=== PATIENT | male | born 1955 | race Caucasian/White ===

== ENCOUNTER 2018-10-02 13:00 | Inpatient (IN) | payer OTHER ==
[~2018-10-02] VITALS: Ht 185.4 cm; Wt 113.0 kg
[~2018-10-02 13:00] MED LIST: ASCO500C7 PO; CHOL4PAC PO; FLUT16SP17 NASAL; METF500T3 PO; MULTI PO; OLME40TA PO; UBID300C PO
[2018-10-08] VITALS (16 sets, daily range): BP systolic 97–139; BP diastolic 43–85; PULSE 72–92; RESP 11–19; Ht 185.4 cm; Wt 113.0 kg
[2018-10-08] MEDS ORDERED: LACTATED RINGER'S 1,000 ML IV ONE (11:00)
[2018-10-08] MEDS ORDERED: CEFAZOLIN 2 GM/50 ML (PMX) 50 ML IVPB SCH (11:00)
[2018-10-08] MEDS ORDERED: SOD CHLORIDE 0.9% 1,000 ML IV SCH (11:30)
[2018-10-08] MEDS ORDERED: GELATIN SIZE 100 SPONGE ONE (11:50)
[2018-10-08] MEDS ORDERED: POLYMYXIN/BACITRACIN 1L IRRIG ONE (11:51)
[2018-10-08] MEDS ORDERED: THROMBIN 5000 UNIT (RECOTHROM) VIAL ONE (11:51)
[2018-10-08] MEDS ORDERED: BUPIVACAINE 0.5%/EPI (SDV) 30 ML INJ ONE (11:51)
[2018-10-08] MEDS ORDERED: HEPARIN 1000 UNITS/ML 10 ML INJ ONE (11:51)
[2018-10-08] MEDS ORDERED: CA CHLORIDE 10% 10 ML SYRINGE ONE (11:52)
--- NOTE | 2018-10-08 12:11 | PREAC ---
Date/Time of Note Date/Time of Note DATE: 10/08/18 TIME: 12:09 Anesthesia Eval and Record Evaluation Time Pre-Procedure Interview DATE: 10/08/18 TIME: 12:09 Age 63 Sex male NPO: 8 hrs Preoperative diagnosis back pain, spinal stenosis and lipomatosis Planned procedure decompression Past Medical History Past Medical History: Includes Cardio: HTN, Dyslipidemia Endo: Diabetes GI: Obesity Surgery & Anesthesia Issues Hx of delayed emergence, No known issue Meds Anticoagulation: No Beta Christie within 24 hr: No Reason Beta Christie not given: Pt. not on B-Christie Reported Medications Ubidecarenone* (Co Q-10*) 300 Mg Capsule, 300 MG PO DAILY, CAP 10/08/18 Multivitamins* (Theragran*) 1 Tab Tab, 1 TAB PO DAILY, TAB 10/08/18 Ascorbic Acid* (Vitamin C*) 500 Mg Capsule.sa, 500 MG PO DAILY, CAP 10/08/18 Fluticasone Propionate* (Fluticasone Propionate* Nasal) 50 Mcg/[place] - 16 Gm [place].susp, 1 SPRAY NASAL DAILY, #1 BOTTLE TO EACH NOSTRIL 10/08/18 Metformin* (Glucophage* XR) 500 Mg Tab.sr.24h, 500 MG PO BID, #30 TAB 10/08/18 Olmesartan Medoxomil (Olmesartan Medoxomil) 40 Mg Tablet, 40 MG PO DAILY 10/08/18 Current Medications Cefazolin Sodium/ Dextrose 50 ml @ 100 mls/hr PRE-OP IVPB ; Start 10/08/18 at 11:00; Stop 10/08/18 at 15:00 Sodium Chloride 1,000 ml @ 0 mls/hr Q0M IV ; Start 10/08/18 at 11:30 Meds reviewed: Yes Allergies Coded Allergies: acetaminophen (Unverified Allergy, Unknown, 10/08/18) hydrocodone (Unverified Allergy, Unknown, 10/08/18) meperidine (Unverified Allergy, Unknown, 10/08/18) Allergies Reviewed: Yes Labs/Studies Labs Reviewed: Reviewed by anesthesiologist test: N/A Pre-procedure Exam Last vitals Vital Signs Date Temp Pulse Resp B/P (MAP) Pulse Ox O2 O2 Flow FiO2 Time Delivery Rate 10/08/18 97.8 78 16 116/70 98 Room Air 11:49 (85) Airway: Adequate mouth opening, Adequate thyromental dist Mallampati: Mallampati IV Teeth: Normal Lung: Normal Heart: Normal ASA Physical Status ASA physical status: 2 Emergency: None Pre-operative Attestations Prior to commencing anesthesia and surgery, the patient was re-evaluated, there was verification of: *The patient's identity *The results of appropriate recent lab work and preoperative vital signs *The above evaluation not changing prior to induction *Anesthetic plan, risk benefits, alternative and complications discussed with patient/family; questions answered; patient/family understands, accepts and wishes to proceed. RIKKI LEOS DO Oct 08, 2018 12:11
[2018-10-08] MEDS: 1/2 NS + KCL 20 MEQ 1,000 ML IV SCH ×3 (12:17→22:17)
--- NOTE | 2018-10-08 12:17 | HPN ---
Date/Time of Note Date/Time of Note DATE: 10/08/18 TIME: 12:17 Interval H&P Admission Note Pt. seen H&P reviewed: No system changes VIOLET ALAMO PA-C Oct 08, 2018 12:17
[2018-10-08] MEDS ORDERED: DESFLURANE 15 MIN ONE (12:24)
[2018-10-08] MEDS ORDERED: PROPOFOL 20 ML ONE (12:24)
[2018-10-08] MEDS ORDERED: SUCCINYLCHOLINE CHLORIDE 100 MG/5 ML SYG IV ONE (12:24)
[2018-10-08] MEDS ORDERED: LIDOCAINE 2% (SDV) 5 ML INJ ONE (12:24)
[2018-10-08] MEDS ORDERED: ROCURONIUM 50 MG INJ ONE (12:24)
[2018-10-08] MEDS ORDERED: MIDAZOLAM 1 MG/ML 2 ML INJ ONE (12:25)
[2018-10-08] MEDS ORDERED: ONDANSETRON 4 MG INJ IV PRN ×2 (12:30→14:30)
[2018-10-08] MEDS ORDERED: HYDROmorphONE 0.5 MG/0.5 ML SYG IV PRN (12:30)
[2018-10-08] MEDS ORDERED: BISACODYL 10 MG SUPP PR PRN (12:30)
[2018-10-08] MEDS ORDERED: traMADol 50 MG TAB PO PRN (12:30)
[2018-10-08] MEDS ORDERED: AL HYDROX/MG HYDROX/SIMETH 30 ML CUP PO PRN (12:30)
[2018-10-08] MEDS ORDERED: DIPHENHYDRAMINE 50 MG INJ IV PRN (12:30)
[2018-10-08] MEDS ORDERED: DIPHENHYDRAMINE 25 MG CAP PO PRN (12:30)
[2018-10-08] MEDS ORDERED: NALOXONE (0.4 MG/ML) INJ IV PRN (12:30)
[2018-10-08] MEDS ORDERED: ACETAMINOPHEN 325 MG TAB PO PRN (12:30)
[2018-10-08] MEDS ORDERED: CEPASTAT LOZENGE MT PRN (12:30)
[2018-10-08] MEDS ORDERED: CARISOPRODOL 350 MG TAB PO PRN (12:30)
[2018-10-08] MEDS ORDERED: ONDANSETRON 4 MG INJ ONE (12:41)
[2018-10-08] MEDS ORDERED: CEFAZOLIN 1 GM INJ ONE (12:41)
[2018-10-08] MEDS ORDERED: DEXAMETHASONE 4 MG/ML 5 ML INJ ONE (12:41)
[2018-10-08] MEDS ORDERED: GLUCOSE GEL 15 GRAM TUBE PO PRN ×2 (14:30)
[2018-10-08] MEDS ORDERED: GLUCOSE GEL 15 GRAM TUBE BUCCAL PRN (14:30)
[2018-10-08] MEDS ORDERED: hydrALAzine 20 MG INJ IV PRN (14:30)
[2018-10-08] MEDS ORDERED: GLUCAGON 1 MG INJ IM PRN (14:30)
[2018-10-08] MEDS ORDERED: LABETALOL HCL 20MG INJ IV PRN (14:30)
[2018-10-08] MEDS ORDERED: HYDROmorphONE 1 MG/5 ML IV SYRINGE IV PRN ×3 (14:30)
[2018-10-08] MEDS ORDERED: DEXTROSE 50% 50 ML SYRINGE IV PRN ×2 (14:30)
[2018-10-08] MEDS ORDERED: SUGAMMADEX SODIUM 200 MG/2 ML VIAL IV ONE (14:34)
--- NOTE | 2018-10-08 14:46 | SIPON ---
Date/Time of Note Date/Time of Note DATE: 10/08/18 TIME: 14:44 Operative Report Preoperative Diagnosis Lumbosacral stenosis Postoperative Diagnosis Lumbosacral stenosis Operation/Procedure Performed Lumbosacral decompression Surgeon see signature line veterinarian assistant Eli Saini Anesthesia: general Estimated blood loss: 50 - 100 ml's Transfusion Required none Specimen None Grafts/Implants none Complications none MEAGAN DAVIS MD Oct 08, 2018 14:46
--- NOTE | 2018-10-08 14:56 | PAC ---
Date/Time of Note Date/Time of Note DATE: 10/08/18 TIME: 14:55 Post-Anesthesia Notes Post-Anesthesia Note Last documented vital signs Vital Signs Date Temp Pulse Resp B/P (MAP) Pulse Ox O2 O2 Flow FiO2 Time Delivery Rate 10/08/18 98 90 16 120/60 98 Room Air Activity: WNL Respiratory function: WNL Cardiovascular function: WNL Mental status: Baseline Pain reasonably controlled: Yes Hydration appropriate: Yes Nausea/Vomiting absent: Yes RIKKI LEOS DO Oct 08, 2018 14:56
[2018-10-08] MEDS ORDERED: FENTAnyl 50 MCG/ML VIAL IV PRN ×3 (15:00)
[2018-10-08] MEDS: CEFAZOLIN 1 GM/50 ML (PMX) 50 ML IVPB SCH ×2 (15:21→23:08)
--- NOTE | 2018-10-08 17:18 | OPR ---
DATE OF OPERATION: 10/08/2018 PREOPERATIVE DIAGNOSES: 1. L5 to S1 stenosis. 2. Epidural lipomatosis. 3. Extradural intraspinal cyst. POSTOPERATIVE DIAGNOSES: 1. L5 to S1 stenosis. 2. Epidural lipomatosis. 3. Extradural intraspinal cyst. PROCEDURE: Central decompressive laminectomy at L5 to S1, decompression L5 and S1 nerve root with removal of epidural lipomatosis. ESTIMATED BLOOD LOSS: 60 mL. FINDINGS: Patient had stenosis with epidural lipomatosis. Neuromonitoring at the start of the case revealed left L5 amplitude down 40% and left L4 amplitude down to 30%. End of the case the nerve signals returned to normal. DRAINS: None. SPECIMENS: None. COMPLICATIONS OF PROCEDURES: None. ANESTHESIOLOGIST: Hiro Taylor DO TYPE OF ANESTHESIA: General. INDICATIONS FOR PROCEDURE: This is a 63-year-old gentleman with lumbar radiculopathy in setting of stenosis at the L5 to S1 level. He failed nonoperative measures; therefore, I recommended that he undergo the above procedure. Preoperatively, we discussed risks, benefits and alternatives. He understood and wished to proceed. DESCRIPTION OF PROCEDURE IN DETAIL: The patient was identified in the preoperative holding area, given vancomycin antibiotic, taken to the operating room, where he was successfully placed under general anesthesia. Neuromonitoring leads were placed. Sequential compressive devices were applied. Intraoperative neuromonitoring was performed by Dr. Llanos from 1212 until 1435 to include SSEP, MEP and EMG performed by [employer]. The patient was placed in the operative table in prone position over a Fredy frame. All bony prominences were padded. The back was then prepped and draped in the usual sterile fashion. Spinal needles were placed and lateral localizing films were obtained to confirm the correct levels. Once this was confirmed, I injected Marcaine and epinephrine. Incision was then made over the L5 to S1 level. Incision was taken down to dorsal fascia which was incised with Bovie cautery. I then subperiosteally dissected the L5 and S1 lamina. Kerrison was placed under the L5 lamina and repeat lateral film was obtained to confirm the correct levels. Next, I performed a central decompressive laminectomy at the L5 to S1 level. I left the upper lamina and spinous process intact. I then brought in the microscope and then I identified ligamentum flavum which I dissected down in the midline and then dissected out to the right. I decompressed the right side of the canal as well as the traversing nerve root. I then was able to decompress the L5 nerve root as well in addition to the S1 nerve root. I then turned my attention to the left side. Here, the ligamentum flavum adhered to the dura due to a synovial cyst. I was able to peel this off meticulously with a Tarkio elevator and then I was able to remove the ligamentum flavum at the site. Epidural lipomatosis was identified bilaterally. Once I was able to remove this, I completed the decompression and decompressed the L5 and S1 nerve roots on the left. At this point, all nerve signals returned to normal. Hemostasis was achieved. The wound was irrigated. PPP and thrombin were injected over the dura. Valsalva maneuver was performed and there was no leak of CSF. A deep subfascial drain was placed and the retractors were removed. I closed the fascia with #1 Vicryl stitch. I closed the subcuticular layer with 2-0 Monocryl stitch. Microscope was taken off the field. A 4-0 Monocryl closure was then performed. Dermabond and sterile dressing was then applied. The patient was awakened from anesthesia and taken to the recovery room in stable condition. Lap, sponge and instruments were correct x2. There were no apparent complications during the procedure. The patient will be admitted to the [facility] for routine postoperative care to include pain control, neurovascular checks, antibiotics and physical therapy. Dictated By: MEAGAN KHAN/JAYDA Conf#: [id number] DID#: [id number] CC: ANIBAL OSULLIVAN MD;*EndCC* MTDD
[2018-10-08] MEDS: metFORMIN (XR) 500 MG TAB PO SCH (17:55)
[2018-10-08] MEDS: INSULIN ASPART [NOVOLOG] 3 ML PEN SC SCH ×3 (17:55→21:00)
--- NOTE | 2018-10-08 18:14 | CONS ---
Assessment/Plan Assessment/Plan Problems: (1) Type 2 diabetes mellitus without complications Status: Chronic Comment: Cont. metformin and monitor glucose. Check A1c. Intensify therapy if necessary (2) Essential (primary) hypertension Status: Chronic Comment: Cont. losartan and monitor BP. Intensify therapy if necessary. (3) Hyperlipidemia Status: Chronic Comment: Statin intolerant and failed ezetimibe as well. Consider bile acid sequestrant medication but would not give while also on narcotics due to increased risk of constipation. Will give Rx before d/c. (4) Allergic rhinitis Status: Chronic Comment: Cont. nasal fluticasone (5) Spinal stenosis of lumbar region with neurogenic claudication Status: Resolved Comment: Per primary team (6) Status post lumbar laminectomy Status: Acute Comment: Doing well POD#0. Pain control and PT per primary team. Will follow with you and manage any medical issues should they arise. Consultation Date/Type/Reason Admit Date/Time Oct 08, 2018 at 10:10 Date of Consultation: Oct 08, 2018 Type of Consult Medicine Reason for Consultation Medical Management Requesting Provider: MEAGAN DAVIS MD Date/Time of Note DATE: 10/08/18 TIME: 18:07 Hx of Present Illness 63 y/o C M w/ h/o T2DM, HTN, hyperlipidemia w/ statin intolerance in [facility] until 11 y. ago when he began to experience situational numbness in the balls of his feet. Slowly progressive. Recently numbness turned to pain and became painful to do anything. Unable to ascend stairs due to pain. Even more recently developed lumbar pain. MRI showed lumbar spinal stenosis and epidural lipoma. Pt. admitted today for scheduled lumbar lami and epidural lipomectomy. Constitutional: no complaints, improved Eyes: no complaints ENT: no complaints Respiratory: no complaints Cardiovascular: no complaints Gastrointestinal: no complaints Genitourinary: no complaints Musculoskeletal: no complaints Neurologic: no complaints Past Medical History Medical History: diabetes, high cholesterol, hypertension Home Meds Reported Medications Ubidecarenone* (Co Q-10*) 300 Mg Capsule, 300 MG PO DAILY, CAP 10/08/18 Multivitamins* (Theragran*) 1 Tab Tab, 1 TAB PO DAILY, TAB 10/08/18 Ascorbic Acid* (Vitamin C*) 500 Mg Capsule.sa, 500 MG PO DAILY, CAP 10/08/18 Fluticasone Propionate* (Fluticasone Propionate* Nasal) 50 Mcg/[place] - 16 Gm [place].susp, 1 SPRAY NASAL DAILY, #1 BOTTLE TO EACH NOSTRIL 10/08/18 Metformin* (Glucophage* XR) 500 Mg Tab.sr.24h, 500 MG PO BID, #30 TAB 10/08/18 Olmesartan Medoxomil (Olmesartan Medoxomil) 40 Mg Tablet, 40 MG PO DAILY 10/08/18 Medications Current Medications Sodium Chloride 1,000 ml @ 0 mls/hr Q0M IV ; Start 10/08/18 at 11:30 Potassium Chloride/Sodium Chloride 1,000 ml @ 100 mls/hr Q10H IV Last administered on 10/08/18at 17:59; Admin Dose 100 MLS/HR; Start 10/08/18 at 12:17 Tramadol HCl (Ultram) 100 mg Q4H PRN PO .PAIN 6-10; Start 10/08/18 at 12:30 Hydromorphone HCl (Dilaudid) 0.2 mg Q1H PRN IV .BREAKTHROUGH PAIN; Start 10/08/18 at 12:30 Cefazolin Sodium 50 ml @ 100 mls/hr Q8H IVPB Last administered on 10/08/18at 15:21; Admin Dose 100 MLS/HR; Start 10/08/18 at 12:30; Stop 10/09/18 at 04:59 Ondansetron HCl (Zofran Inj) 4 mg Q6H PRN IV NAUSEA/VOMITING; Start 10/08/18 at 12:30 Bisacodyl (Dulcolax Supp) 10 mg DAILY PRN [place] .CONSTIPATION; Start 10/08/18 at 12:30 Docusate Sodium (Colace) 100 mg BID PO ; Start 10/08/18 at 21:00 Al Hydrox/Mg Hydrox/Simethicone (Mag-Al Plus) 15 ml Q6H PRN PO .CONSTIPATION/DYSPEPSIA; Start 10/08/18 at 12:30 Acetaminophen (Tylenol Tab) 650 mg Q4H PRN PO FULLER OR TEMP GREATER THAN 101.3F; Start 10/08/18 at 12:30 Carisoprodol (Soma) 350 mg TID PRN PO .MUSCLE SPASMS; Start 10/08/18 at 12:30 Phenol (Cepastat Lozenge) 1 lozenge PRN PRN MT .SORE THROAT; Start 10/08/18 at 12:30 Diphenhydramine HCl (Benadryl) 25 mg Q6H PRN PO .ITCHING; Start 10/08/18 at 12:30 Diphenhydramine HCl (Benadryl) 25 mg Q6H PRN IV .ITCHING; Start 10/08/18 at 12:30 Naloxone HCl (Narcan) 0.2 mg Q2M PRN IV .RR 8 BREATHS/MIN OR LESS; Start 10/08/18 at 12:30 Ascorbic Acid (Vitamin C) 500 mg DAILY PO ; Start 10/09/18 at 09:00 Fluticasone Propionate (Flonase 0.05% Nasal) 1 spray DAILY NASAL ; Start 10/09/18 at 09:00 Metformin HCl (Glucophage Xr) 500 mg BID WITH MEALS PO Last administered on 10/08/18at 17:55; Admin Dose 500 MG; Start 10/08/18 at 17:55 Multivitamins Therapeutic (Theragran) 1 tab DAILY PO ; Start 10/09/18 at 09:00 Losartan Potassium (Cozaar) 100 mg DAILY PO ; Start 10/09/18 at 09:00 Insulin Aspart (Novolog Insulin Pen) NOVOLOG *MILD* ALGORITHM WITH MEALS BEDTIME SC Last administered on 10/08/18at 18:00; Admin Dose 2 UNIT; Start 10/08/18 at 17:55 Miscellaneous Information 1 ea NOTE XX ; Start 10/08/18 at 14:30 Glucose (Glutose) 15 gm Q15M PRN PO DECREASED GLUCOSE; Start 10/08/18 at 14:30 Glucose (Glutose) 22.5 gm Q15M PRN PO DECREASED GLUCOSE; Start 10/08/18 at 14:30 Dextrose (D50w Syringe) 25 ml Q15M PRN IV DECREASED GLUCOSE; Start 10/08/18 at 14:30 Dextrose (D50w Syringe) 50 ml Q15M PRN IV DECREASED GLUCOSE; Start 10/08/18 at 14:30 Glucagon (Glucagen) 1 mg Q15M PRN IM DECREASED GLUCOSE; Start 10/08/18 at 14:30 Glucose (Glutose) 15 gm Q15M PRN BUCCAL DECREASED GLUCOSE; Start 10/08/18 at 14:30 Hydromorphone HCl (Dilaudid) 0.2 mg PACU PRN IV MILD PAIN 1-3; Start 10/08/18 at 14:30; Stop 10/08/18 at 20:00 Hydromorphone HCl (Dilaudid) 0.4 mg PACU PRN IV MOD PAIN 4-6; Start 10/08/18 at 14:30; Stop 10/08/18 at 20:00 Hydromorphone HCl (Dilaudid) 0.6 mg PACU PRN IV SEVERE PAIN 7-10; Start 10/08/18 at 14:30; Stop 10/08/18 at 20:00 Ondansetron HCl (Zofran Inj) 4 mg PACU ORDER PRN IV NAUSEA/VOMITING; Start 10/08/18 at 14:30; Stop 10/08/18 at 20:00 Labetalol HCl (Labetalol) 5 mg PACU ORDER PRN IV HIGH BLOOD PRESSURE; Start 10/08/18 at 14:30; Stop 10/08/18 at 20:00 Hydralazine HCl (Apresoline) 5 mg PACU ORDER PRN IV HIGH BLOOD PRESSURE; Start 10/08/18 at 14:30; Stop 10/08/18 at 20:00 Fentanyl (Sublimaze) 25 mcg PACU ORDER PRN IV MILD PAIN 1-3 Last administered on 10/08/18at 15:44; Admin Dose 25 MCG; Start 10/08/18 at 15:00; Stop 10/08/18 at 19:00 Fentanyl (Sublimaze) 50 mcg PACU ORDER PRN IV MOD PAIN 4-6 Last administered on 10/08/18at 15:26; Admin Dose 50 MCG; Start 10/08/18 at 15:00; Stop 10/08/18 at 19:00 Fentanyl (Sublimaze) 75 mcg PACU ORDER PRN IV SEVERE PAIN 7-10; Start 10/08/18 at 15:00; Stop 10/08/18 at 19:00 Allergies: Coded Allergies: hydrocodone (Unverified Allergy, Unknown, NAUSEA/VOMITING, 10/08/18) meperidine (Unverified Allergy, Unknown, PALPITATIONS, 10/08/18) Past Surgical History Past Surgical Hx: other (c-spine fusion, R shoulder arthroscopic ligament repair, thoracic spine microdiskectomy, B hip arthroplasties, L knee arthroscopy) Family History Significant Family History: cancer (colon in father, myelodysplasia in mother) Social History b. 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, , 2 children Alcohol Use: rarely Smoking Status: Never smoker Drug Use: none Exam/Review of Systems Exam Vitals VS - Last 72 Hours, by Label Date Temp Pulse Resp B/P (MAP) Pulse Ox O2 O2 Flow FiO2 Time Delivery Rate 10/08/18 78 19 97/43 (61) 96 Room Air 15:28 10/08/18 78 13 131/82 96 Room Air 15:23 (98) 10/08/18 80 14 130/76 95 Room Air 15:18 (94) 10/08/18 80 13 139/81 96 Room Air 15:13 (100) 10/08/18 82 11 135/78 96 Room Air 15:08 (97) 10/08/18 84 18 111/64 93 Room Air 15:03 (80) 10/08/18 98.0 15:00 10/08/18 98.0 92 17 121/74 93 Room Air 14:55 (90) 10/08/18 97.8 78 16 116/70 98 Room Air 11:49 (85) Vital Signs Date Temp Pulse Resp B/P (MAP) Pulse Ox O2 O2 Flow FiO2 Time Delivery Rate 10/08/18 78 19 97/43 (61) 96 Room Air 15:28 10/08/18 98.0 15:00 Constitutional: alert, oriented, obese Psych: no complaints, nl mood/affect Respiratory: clear to auscultation, normal air movement Cardiovascular: regular rate and rhythm, nl pulses; No edema, No murmurs/extra sounds, No rub Gastrointestinal: soft, nl liver, spleen, non-tender, bowel sounds; No mass, No rebound or guarding Musculoskeletal: nl extremities to inspection Extremities: normal pulses; No cyanosis, No clubbing, No edema Neurological: LOCKS TENDER II-XII intact, nl mental status, nl speech, nl strength Additional Comments Bedside Glucose - 72 Hours Test 10/08/18 11:35 10/08/18 17:47 Bedside Glucose 97 mg/dL (70-220) 182 mg/dL (70-220) Results Results 24hrs Laboratory Tests Test 10/08/18 11:35 10/08/18 17:47 Bedside Glucose 97 182 Medications Medication Current Medications Sodium Chloride 1,000 ml @ 0 mls/hr Q0M IV ; Start 10/08/18 at 11:30 Potassium Chloride/Sodium Chloride 1,000 ml @ 100 mls/hr Q10H IV Last administered on 10/08/18at 17:59; Admin Dose 100 MLS/HR; Start 10/08/18 at 12:17 Tramadol HCl (Ultram) 100 mg Q4H PRN PO .PAIN 6-10; Start 10/08/18 at 12:30 Hydromorphone HCl (Dilaudid) 0.2 mg Q1H PRN IV .BREAKTHROUGH PAIN; Start 10/08/18 at 12:30 Cefazolin Sodium 50 ml @ 100 mls/hr Q8H IVPB Last administered on 10/08/18at 15:21; Admin Dose 100 MLS/HR; Start 10/08/18 at 12:30; Stop 10/09/18 at 04:59 Ondansetron HCl (Zofran Inj) 4 mg Q6H PRN IV NAUSEA/VOMITING; Start 10/08/18 at 12:30 Bisacodyl (Dulcolax Supp) 10 mg DAILY PRN [place] .CONSTIPATION; Start 10/08/18 at 12:30 Docusate Sodium (Colace) 100 mg BID PO ; Start 10/08/18 at 21:00 Al Hydrox/Mg Hydrox/Simethicone (Mag-Al Plus) 15 ml Q6H PRN PO .CONSTIPATION/DYSPEPSIA; Start 10/08/18 at 12:30 Acetaminophen (Tylenol Tab) 650 mg Q4H PRN PO FULLER OR TEMP GREATER THAN 101.3F; Start 10/08/18 at 12:30 Carisoprodol (Soma) 350 mg TID PRN PO .MUSCLE SPASMS; Start 10/08/18 at 12:30 Phenol (Cepastat Lozenge) 1 lozenge PRN PRN [place] .SORE THROAT; Start 10/08/18 at 12:30 Diphenhydramine HCl (Benadryl) 25 mg Q6H PRN PO .ITCHING; Start 10/08/18 at 12:30 Diphenhydramine HCl (Benadryl) 25 mg Q6H PRN IV .ITCHING; Start 10/08/18 at 12:30 Naloxone HCl (Narcan) 0.2 mg Q2M PRN IV .RR 8 BREATHS/MIN OR LESS; Start 10/08/18 at 12:30 Ascorbic Acid (Vitamin C) 500 mg DAILY PO ; Start 10/09/18 at 09:00 Fluticasone Propionate (Flonase 0.05% Nasal) 1 spray DAILY NASAL ; Start 10/09/18 at 09:00 Metformin HCl (Glucophage Xr) 500 mg BID WITH MEALS PO Last administered on 10/08/18at 17:55; Admin Dose 500 MG; Start 10/08/18 at 17:55 Multivitamins Therapeutic (Theragran) 1 tab DAILY PO ; Start 10/09/18 at 09:00 Losartan Potassium (Cozaar) 100 mg DAILY PO ; Start 10/09/18 at 09:00 Insulin Aspart (Novolog Insulin Pen) NOVOLOG *MILD* ALGORITHM WITH MEALS BEDTIME SC Last administered on 10/08/18at 18:00; Admin Dose 2 UNIT; Start 10/08/18 at 17:55 Miscellaneous Information 1 ea NOTE XX ; Start 10/08/18 at 14:30 Glucose (Glutose) 15 gm Q15M PRN PO DECREASED GLUCOSE; Start 10/08/18 at 14:30 Glucose (Glutose) 22.5 gm Q15M PRN PO DECREASED GLUCOSE; Start 10/08/18 at 14:30 Dextrose (D50w Syringe) 25 ml Q15M PRN IV DECREASED GLUCOSE; Start 10/08/18 at 14:30 Dextrose (D50w Syringe) 50 ml Q15M PRN IV DECREASED GLUCOSE; Start 10/08/18 at 14:30 Glucagon (Glucagen) 1 mg Q15M PRN IM DECREASED GLUCOSE; Start 10/08/18 at 14:30 Glucose (Glutose) 15 gm Q15M PRN BUCCAL DECREASED GLUCOSE; Start 10/08/18 at 14:30 Hydromorphone HCl (Dilaudid) 0.2 mg PACU PRN IV MILD PAIN 1-3; Start 10/08/18 at 14:30; Stop 10/08/18 at 20:00 Hydromorphone HCl (Dilaudid) 0.4 mg PACU PRN IV MOD PAIN 4-6; Start 10/08/18 at 14:30; Stop 10/08/18 at 20:00 Hydromorphone HCl (Dilaudid) 0.6 mg PACU PRN IV SEVERE PAIN 7-10; Start 10/08/18 at 14:30; Stop 10/08/18 at 20:00 Ondansetron HCl (Zofran Inj) 4 mg PACU ORDER PRN IV NAUSEA/VOMITING; Start 10/08/18 at 14:30; Stop 10/08/18 at 20:00 Labetalol HCl (Labetalol) 5 mg PACU ORDER PRN IV HIGH BLOOD PRESSURE; Start 10/08/18 at 14:30; Stop 10/08/18 at 20:00 Hydralazine HCl (Apresoline) 5 mg PACU ORDER PRN IV HIGH BLOOD PRESSURE; Start 10/08/18 at 14:30; Stop 10/08/18 at 20:00 Fentanyl (Sublimaze) 25 mcg PACU ORDER PRN IV MILD PAIN 1-3 Last administered on 10/08/18at 15:44; Admin Dose 25 MCG; Start 10/08/18 at 15:00; Stop 10/08/18 at 19:00 Fentanyl (Sublimaze) 50 mcg PACU ORDER PRN IV MOD PAIN 4-6 Last administered on 10/08/18at 15:26; Admin Dose 50 MCG; Start 10/08/18 at 15:00; Stop 10/08/18 at 19:00 Fentanyl (Sublimaze) 75 mcg PACU ORDER PRN IV SEVERE PAIN 7-10; Start 10/08/18 at 15:00; Stop 10/08/18 at 19:00 CALISTA BANKS MD Oct 08, 2018 18:14
[2018-10-08] MEDS: DOCUSATE SODIUM 100 MG CAP PO SCH (21:53)
[2018-10-09 01:51] VITALS: BP 117/71; PULSE 85; RESP 18
[2018-10-09] MEDS: 1/2 NS + KCL 20 MEQ 1,000 ML IV SCH (04:50)
[2018-10-09] MEDS: CEFAZOLIN 1 GM/50 ML (PMX) 50 ML IVPB SCH (06:01)
[2018-10-09 07:29] VITALS: BP 125/73; PULSE 70; RESP 18
[2018-10-09] MEDS: INSULIN ASPART [NOVOLOG] 3 ML PEN SC SCH ×2 (07:50→11:40)
--- NOTE | 2018-10-09 08:55 | PN ---
Date/Time of Note Date/Time of Note DATE: 10/09/18 TIME: 08:55 Assessment/Plan Lines/Catheters IV Catheter Type (from Nrsg): Peripheral IV Mcmanus in Place (from Nrsg): No Assessment/Plan Assessment/Plan Postop day 1. Patient is doing well. Not requiring pain medications. 100 cc of drain output overnight. Will recheck this afternoon. When drain is removed and the patient can be discharged. Continue with physical therapy. Subjective 24 Hr Interval Summary Doing well with improved leg symptoms Exam/Review of Systems Vital Signs Vitals Vital Signs Date Temp Pulse Resp B/P (MAP) Pulse Ox O2 O2 Flow FiO2 Time Delivery Rate 10/09/18 97.9 70 18 125/73 97 Room Air 07:29 (90) Intake and Output 10/08/18 10/08/18 10/09/18 1515:00 23:00 07:00 IntakeIntake Total 1500 ml 350 ml 1200 ml OutputOutput Total 80 ml 300 ml 340 ml BalanceBalance 1420 ml 50 ml 860 ml Exam Free Text/Dictation Neuro intact Results Result Diagram: 10/09/18 0429 10/09/18 0429 MEAGAN DAVIS MD Oct 09, 2018 08:55
[2018-10-09] MEDS: DOCUSATE SODIUM 100 MG CAP PO SCH (08:56)
[2018-10-09] MEDS: metFORMIN (XR) 500 MG TAB PO SCH (08:56)
[2018-10-09] MEDS ORDERED: LOSARTAN 50 MG TAB PO SCH (09:00)
[2018-10-09] MEDS ORDERED: MULTIVITAMINS THERAPEUTIC TAB PO SCH (09:00)
[2018-10-09] MEDS ORDERED: FLUTICASONE 0.05% 16 GM NAS SPRAY NASAL SCH (09:00)
[2018-10-09] MEDS ORDERED: ASCORBIC ACID 500 MG TAB PO SCH (09:00)
--- NOTE | 2018-10-09 12:24 | DS ---
Date/Time of Note Date/Time of Note DATE: 10/09/18 TIME: 12:23 Discharge Summary Admission/Discharge Info Admit Date/Time Oct 08, 2018 at 10:10 Discharge Date/Time October 09 Discharge Diagnosis Lumbar decompression Patient Condition: Good Procedures Lumbar decompression Hospital Course Patient was [facility] after undergoing a lumbar decompression. His postoperative course was uncomplicated. By postoperative day 1 he was deemed stable for discharge with follow-up arranged with the undersigned. Home Meds Reported Medications Ubidecarenone* (Co Q-10*) 300 Mg Capsule, 300 MG PO DAILY, CAP 10/08/18 Multivitamins* (Theragran*) 1 Tab Tab, 1 TAB PO DAILY, TAB 10/08/18 Ascorbic Acid* (Vitamin C*) 500 Mg Capsule.sa, 500 MG PO DAILY, CAP 10/08/18 Fluticasone Propionate* (Fluticasone Propionate* Nasal) 50 Mcg/[place] - 16 Gm [place].susp, 1 SPRAY NASAL DAILY, #1 BOTTLE TO EACH NOSTRIL 10/08/18 Metformin* (Glucophage* XR) 500 Mg Tab.sr.24h, 500 MG PO BID, #30 TAB 10/08/18 Olmesartan Medoxomil (Olmesartan Medoxomil) 40 Mg Tablet, 40 MG PO DAILY 10/08/18 Primary Care Provider Care Physician No Primary Pending Labs Laboratory Tests Test 10/08/18 17:47 10/08/18 21:50 10/09/18 04:29 10/09/18 07:59 Bedside 182 165 Glucose mg/dL (70-220) mg/dL (70-220) White Blood 13.0 Count 10^3/ul (4.8-1 0.8) Red Blood 4.55 Count 10^6/ul (4.70- 6.10) Hemoglobin 13.9 g/dl (14.0-18. 0) Hematocrit 41.7 % (42.0-52.0) Mean 91.6 Corpuscular fl (82.0-101.0 Volume ) Mean 30.5 Corpuscular pg (29.0-33.0) Hemoglobin Mean 33.3 Corpuscular g/dl (32.0-37. Hemoglobin Conc 0) ent Red Cell 12.6 Distribution % (11.5-14.5) Width Platelet Count 279 10^3/UL (140-4 15) Mean Platelet 10.5 Volume fl (7.4-10.4) Immature 0.400 Granulocytes % % (0.001-0.429 ) Neutrophils % 84.4 % (39.0-77.0) Lymphocytes % 7.7 % (15.0-51.0) Monocytes % 7.2 % (0.0-11.0) Eosinophils % 0.1 % (0.0-7.0) Basophils % 0.2 % (0.0-2.0) Nucleated Red 0.0 Blood Cells % /100WBC (0.0-0 .0) Immature 0.050 Granulocytes # 10^3/ul (0.0-0 .031) Neutrophils # 11.0 10^3/ul (1.6-7 .5) Lymphocytes # 1.0 10^3/ul (0.8-2 .9) Monocytes # 0.9 10^3/ul (0.3-0 .9) Eosinophils # 0.0 10^3/ul (0.0-0 .5) Basophils # 0.0 10^3/ul (0.0-0 .1) Nucleated Red 0.0 Blood Cells # 10^3/ul (0.0-0 .0) Sodium Level 137 mmol/L (135-14 4) Potassium 4.7 Level mmol/L (3.5-5. 1) Chloride Level 105 mmol/L (97-110 ) Carbon Dioxide 24 Level mmol/L (21-31) Anion Gap 8 (5-13) Blood Urea 35 Nitrogen mg/dl (7-20) Creatinine 1.43 mg/dl (0.61-1. 24) Est Glomerular 50 Filtrat mL/min (>60) Rate mL/min Glucose Level 114 mg/dl (70-220) Hemoglobin A1c 5.6 % (0-5.9) Calcium Level 9.4 mg/dl (8.4-10. 2) Magnesium 1.9 Level mg/dl (1.7-2.5 ) Triglycerides 176 Level mg/dl (0-149) Cholesterol 209 Level mg/dl (100-200 ) LDL 136 mg/dl Cholesterol, Calculated HDL 38 Cholesterol mg/dl (30-78) Cholesterol/HDL 5.5 RATIO Ratio Lab Scanned REFERENCE Report LAB [id number] Test 10/09/18 08:54 Bedside 100 Glucose mg/dL (70-220) MEAGAN DAVIS MD Oct 09, 2018 12:24
[2018-10-09 14:00] VITALS: BP 122/76; PULSE 74; RESP 18
== END 2018-10-09 15:20 | disposition home or self-care (01) | DRG 520 ==
LOC: REC 10-08 10:10 → MS1 10-08 16:25
PROVIDERS: ADMIT Specialist; ATTEND Specialist
PROC: 00BY0ZZ Excision of Lumbar Spinal Cord, Open Approach (ICD-10-PCS; 2018-10-08)
PROC: 01NR0ZZ Release Sacral Nerve, Open Approach (ICD-10-PCS; 2018-10-08)
PROC: 01NB0ZZ Release Lumbar Nerve, Open Approach (ICD-10-PCS; principal; 2018-10-08 12:00)
DX: M48.062 Spinal stenosis, lumbar region with neurogenic claudication (principal); G96.19 Other disorders of meninges, not elsewhere classified; D17.79 Benign lipomatous neoplasm of other sites; E11.9 Type 2 diabetes mellitus without complications; I10 Essential (primary) hypertension; E78.5 Hyperlipidemia, unspecified
CPT/HCPCS: 72020; 80048; 80061; 82962; 83036; 83735; 85025; 86999; 97116; 97161; 97530; J0690; J1100; J1644; J1815; J2250; J2405; J3010; J3480